=== PATIENT | male | born 1960 | race Caucasian/White ===

== ENCOUNTER 2021-11-28 01:31 | Observation (INO) | payer BC ==
[2021-11-28 02:34] LABS: Absolute Lymphocytes (CBC) 1.1 K/uL (0.7-4.9); Hematocrit 39.1 % (39.6-49.0); MPV 7.7 fL (7.6-11.3); RBC Red Blood Cell Count 4.79 M/uL (4.33-5.43)
--- NOTE | 2021-11-28 02:39 | ER ---
Nurse's Notes [facility] Name: Geraldo Torres Age: 61 yrs Sex: Male : 1960 Arrival Date: 11/28/2021 Time: 01:36 Bed 14 Private MD: Diagnosis: Paresthesia of skin;Dyspnea, unspecified;Transient cerebral ischemic attack, unspecified Presentation: 11/28 02:02 Chief complaint: Patient states: I have been increasingly tired for the past 2 weeks jb4 and SOB. I noticed that my SOB is worse with exertion. 2 days ago my arm went numb and got better. I went to bed tonight at 2300 and woke up around 0000 and my arm was still numb and it did not get any better so I came in tonight. Coronavirus screen: At this time, the client does not indicate any symptoms associated with coronavirus-19. Ebola Screen: No symptoms or risks identified at this time. Initial Sepsis Screen: Does the patient meet any 2 criteria? No. Patient's initial sepsis screen is negative. Does the patient have a suspected source of infection? No. Patient's initial sepsis screen is negative. Risk Assessment: Do you want to hurt yourself or someone else? Patient reports no desire to harm self or others. Onset of symptoms was November 28, 2021. Transition of care: patient was not received from another setting of care. 02:02 Method Of Arrival: Ambulatory jb4 02:02 Acuity: SUSIE 2 jb4 02:10 No acute neurological deficit is noted. Pre-hospital glucose is not applicable to this lp1 patient. Triage Assessment: 02:05 The onset of the patients symptoms was November 27, 2021 at 23:00. Neuro: Reports numbness jb4 in left arm. Stroke Activation: Symptom onset < 3 hours Physician: Stroke Attending; Name: ; Notified At: ; Arrived At: Physician: Chief Stroke Resident; Name: ; Notified At: ; Arrived At: Physician: Stroke Resident; Name: ; Notified At: ; Arrived At: Physician: ED Attending; Name: ; Notified At: ; Arrived At: Physician: ED Resident; Name: ; Notified At: ; Arrived At: Historical: - Allergies: 02:05 NKDA; jb4 - PMHx: 02:05 Sleep anea; hypertension; high Cholesterol; jb4 - PSHx: 02:05 Left hand; jb4 - Immunization history:: Adult Immunizations up to date. - Social history:: Smoking status: Patient denies any tobacco usage or history of. Patient uses alcohol, occasionally. - Family history:: not pertinent. - Hospitalizations: : No recent hospitalization is reported. Screenin:02 Abuse screen: Denies threats or abuse. Nutritional screening: No deficits noted. jb4 Tuberculosis screening: No symptoms or risk factors identified. 02:02 VAN Screening: Arm Drift: Patient shows no arm weakness. Patient is VAN negative. jb4 Visual Disturbance: No visual disturbance noted. Aphasia: No aphasia noted. Neglect: No neglect noted. Fall Risk None identified. Assessment: 02:02 VAN Scoring: Arm Drift: Patients demonstrates NO arm weakness. Patient is VAN Negative. jb4 Visual Disturbance: No visual disturbance noted. T-PA (Activase) Screening: Contraindications: Rapidly improving condition or minor deficit: Yes. 02:25 Patient has been NPO before screening. The patient is alert, and able to follow lp1 commands. The patient does not exhibit slurred or garbled speech. The patient is not exhibiting difficulty speaking. The patient does not exhibit difficulty understanding words. The patient is able to swallow own secretions with no drooling or need for suction. Patient tolerated one teaspoon of water. No drooling, immediate coughing, gurgling, or clearing of the throat was noted. The patient tolerated 90mL of water. No drooling, immediate coughing, gurgling, or clearing of the throat was noted. The patient passed the bedside swallow screening. Oral medications may be given as ordered. Contact Physician for further diet orders. Provider notified of bedside swallow screening results: Huber Russell MD. 02:30 General: Appears in no apparent distress. Behavior is calm, cooperative, appropriate lp1 for age. Pain: Denies pain. Neuro: Level of Consciousness is awake, alert, obeys commands, Oriented to person, place, time, situation, Slope Hoist Operator are equal bilaterally Moves all extremities. Full function Gait is steady, Speech is normal, Facial symmetry appears normal, Pupils are PERRLA, Intact. Cardiovascular: Patient's skin is warm and dry. Rhythm is sinus rhythm. Respiratory: Reports intermittent episodes of dyspnea with exertion Respiratory effort is even, unlabored. GI: No signs and/or symptoms were reported involving the gastrointestinal system. : No signs and/or symptoms were reported regarding the genitourinary system. EENT: No signs and/or symptoms were reported regarding the EENT system. Derm: Skin is pink, warm \T\ dry. Musculoskeletal: No deficits noted. 03:14 Reassessment: Hospitalist at bedside to discuss plan of care with patient and . lp1 04:30 Reassessment: Patient appears in no apparent distress at this time. Patient is alert, lp1 oriented x 3, equal unlabored respirations, skin warm/dry/pink. Neuro: Moves all extremities. Full function Speech is normal, Intact. Vital Signs: 02:02 BP 161 / 84; Pulse 74; Resp 18; Temp 98.9(TE); Pulse Ox 96% on R/A; Weight 95.25 kg jb4 (R); Height 5 ft. 8 in. (172.72 cm) (R); Pain 0/10; 02:28 BP 149 / 86; Pulse 74; Resp 17; Pulse Ox 97% on R/A; lp1 03:11 BP 137 / 76; Pulse 68; Resp 20; Pulse Ox 97% on R/A; lp1 04:30 BP 126 / 91; Pulse 64; Resp 20; Pulse Ox 98% on R/A; Pain 0/10; lp1 02:02 Body Mass Index 31.93 (95.25 kg, 172.72 cm) jb4 NIH Stroke Scale Scores: 02:01 NIHSS Score: 0 rn 02:02 NIHSS Score: 0 jb4 02:02 NIHSS Score: 0 jb4 ED Course: 01:36 Patient arrived in ED. bp1 01:37 Huber Russell MD is Attending Physician. rn 02:[address] via stretcher. lp1 02:04 Amanda Krueger, RN is Primary Nurse. lp1 02:05 Triage completed. jb4 02:05 Arm band placed on right wrist. jb4 02:05 Patient has correct armband on for positive identification. Placed in gown. Bed in low lp1 position. Call light in reach. compliance monitor on. Pulse ox on. NIBP on. 02:12 CT Stroke Brain w/o Contrast In Process Unspecified. EDMS 02:15 Inserted saline lock: 20 gauge in right antecubital area, using aseptic technique. lp1 Blood collected. 02:37 Rocio Armendariz MD is Hospitalizing Provider. rn 03:09 CT Head Angio In Process Unspecified. EDMS 03:09 CT Neck Angio In Process Unspecified. EDMS 03:11 No provider procedures requiring assistance completed. Patient admitted, IV remains in lp1 place. Administered Medications: 02:46 Drug: Aspirin 325 mg Route: PO; lp1 04:13 Follow up: Response: No adverse reaction lp1 04:30 Drug: foLIC Acid 1 mg Route: IVPB; Site: right antecubital; lp1 04:48 Follow up: IV Status: Completed infusion; IV Intake: 50ml lp1 04:35 Drug: Potassium Chloride 10 mEq Route: IV; Rate: calculated rate; Site: right lp1 antecubital; 04:56 Follow up: IV Status: Infusion continued upon admission lp1 04:35 Drug: Magnesium Sulfate 1 grams Route: IVPB; Infused Over: 1 hrs; Site: right lp1 antecubital; 04:56 Follow up: IV Status: Infusion continued upon admission lp1 Point of Care Testing: Blood Glucose: 02:02 Blood Glucose: 126 mg/dL; jb4 Ranges: Intake: 04:48 IV: 50ml; Total: 50ml. lp1 Outcome: 02:38 Decision to Hospitalize by Provider. rn 03:11 Condition: stable lp1 03:11 Instructed on the need for admit. 04:56 Admitted to ER Hold. Please see [facility] for further documentation. lp1 08:26 Patient left the ED. jl7 NIH Stroke Scale - NIH Stroke Score Date: 11/28/2021 Time: 02:01 Total Score = 0 1a. Level of Consciousness (LOC) - 0(Alert) 1b. Level of Consciousness (LOC) (Month \T\ Age) - 0(Both) 1c. LOC Commands (Open \T\ Closes Eyes/Operations Officer) - 0(Both) 2. Best Gaze (Lateral Gaze Paresis) - 0(Normal) 3. Visual Field Loss - 0(No visual loss) 4. Facial Palsy - 0(Normal) 5a. Left Arm: Motor (10-second hold) - 0(No drift) 5b. Right Arm: Motor (10-second hold) - 0(No drift) 6a. Left Leg: Motor (5-second hold - always test supine) - 0(No drift) 6b. Right Leg: Motor (5-second hold - always test supine) - 0(No drift) 7. Limb Ataxia (finger/nose \T\ heel/villagomez - test with eyes open) - 0(Absent) 8. Sensory Loss (pinprick arms/legs/face) - 0(Normal) 9. Best Language: Aphasia (description/naming/reading) - 0(No aphasia) 10. Dysarthria (speech clarity - read or repeat words) - 0(Normal) 11. Extinction and Inattention (visual/tactile/auditory/spatial/personal) - 0(No abnormality) Initials: rn NIH Stroke Scale - NIH Stroke Score Date: 11/28/2021 Time: 02:02 Total Score = 0 1a. Level of Consciousness (LOC) - 0(Alert) 1b. Level of Consciousness (LOC) (Month \T\ Age) - 0(Both) 1c. LOC Commands (Open \T\ Closes Eyes/Operations Officer) - 0(Both) 2. Best Gaze (Lateral Gaze Paresis) - 0(Normal) 3. Visual Field Loss - 0(No visual loss) 4. Facial Palsy - 0(Normal) 5a. Left Arm: Motor (10-second hold) - 0(No drift) 5b. Right Arm: Motor (10-second hold) - 0(No drift) 6a. Left Leg: Motor (5-second hold - always test supine) - 0(No drift) 6b. Right Leg: Motor (5-second hold - always test supine) - 0(No drift) 7. Limb Ataxia (finger/nose \T\ heel/villagomez - test with eyes open) - 0(Absent) 8. Sensory Loss (pinprick arms/legs/face) - 0(Normal) 9. Best Language: Aphasia (description/naming/reading) - 0(No aphasia) 10. Dysarthria (speech clarity - read or repeat words) - 0(Normal) 11. Extinction and Inattention (visual/tactile/auditory/spatial/personal) - 0(No abnormality) Initials: jb4 NIH Stroke Scale - NIH Stroke Score Date: 11/28/2021 Time: 02:02 Total Score = 0 1a. Level of Consciousness (LOC) - 0(Alert) 1b. Level of Consciousness (LOC) (Month \T\ Age) - 0(Both) 1c. LOC Commands (Open \T\ Closes Eyes/Operations Officer) - 0(Both) 2. Best Gaze (Lateral Gaze Paresis) - 0(Normal) 3. Visual Field Loss - 0(No visual loss) 4. Facial Palsy - 0(Normal) 5a. Left Arm: Motor (10-second hold) - 0(No drift) 5b. Right Arm: Motor (10-second hold) - 0(No drift) 6a. Left Leg: Motor (5-second hold - always test supine) - 0(No drift) 6b. Right Leg: Motor (5-second hold - always test supine) - 0(No drift) 7. Limb Ataxia (finger/nose \T\ heel/villagomez - test with eyes open) - 0(Absent) 8. Sensory Loss (pinprick arms/legs/face) - 0(Normal) 9. Best Language: Aphasia (description/naming/reading) - 0(No aphasia) 10. Dysarthria (speech clarity - read or repeat words) - 0(Normal) 11. Extinction and Inattention (visual/tactile/auditory/spatial/personal) - 0(No abnormality) Initials: jb4 Signatures: Dispatcher [employer] EDMS Huber Russell MD MD rn Amanda Krueger RN RN lp1 Beck Grimes RN RN jb4 Abhinav Webber RN RN jl7 Yuliya Valente Corrections: (The following items were deleted from the chart) 03:14 03:14 Reassessment: Hospitalist at bedside to discuss plan of care with patient lp1 and lp1
--- NOTE | 2021-11-28 02:39 | EDPHYS ---
Physician Documentation [facility] Name: Geraldo Torres Age: 61 yrs Sex: Male : 1960 Arrival Date: 11/28/2021 Time: 01:36 Bed 14 Private MD: ED Physician Huber Russell HPI: 11/28 02:02 This 61 yrs old Male presents to ER via Unassigned with complaints of Numbness Of Arm. rn 02:02 The patient or guardian complains of. rn 02:02 The patient presents to the emergency department with paresthesias of the left upper rn extremity, that is mild. Onset: The symptoms/episode began/occurred last night. Context: occurred at home, occurred while the patient was asleep, at rest. Associated signs and symptoms: Pertinent positives: paresthesias, Pertinent negatives: altered mental status, chills, dizziness, fever, seizure, syncope, near-syncope, blurred vision, double vision, visual field changes, loss of vision, weakness. Severity of symptoms: At their worst the symptoms were moderate in the emergency department the symptoms have improved. Current symptoms: paresthesias left arm. The patient has experienced a previous episode. The patient has not recently seen a physician. Pt reports went to bed last night around 11PM, felt fine, woke up around midnight with left arm feeling numb or "heavy". Denies any other focal neuro complaint. Reports + mild left neck pain. No chest pain. No sob. No injury. Reports has "bad neck". We woke up with left arm numbness similar to tonight 2 days ago and went away after a few hours. Reports symptoms already improving, and now numbness isolated to mainly left hand near base of thumb. No abd pain. NO headache. No vision changes. . Historical: - Allergies: 02:05 NKDA; jb4 - PMHx: 02:05 Sleep anea; hypertension; high Cholesterol; jb4 - PSHx: 02:05 Left hand; jb4 - Immunization history:: Adult Immunizations up to date. - Social history:: Smoking status: Patient denies any tobacco usage or history of. Patient uses alcohol, occasionally. - Family history:: not pertinent. - Hospitalizations: : No recent hospitalization is reported. ROS: 02:02 Constitutional: Negative for fever, chills, and weight loss, Eyes: Negative for injury, rn pain, redness, and discharge, ENT: Negative for injury, pain, and discharge, Neck: Negative for injury,and swelling, Cardiovascular: Negative for chest pain, palpitations, and edema, Respiratory: Negative for shortness of breath, cough, wheezing, and pleuritic chest pain, Abdomen/GI: Negative for abdominal pain, nausea, vomiting, diarrhea, and constipation, Back: Negative for injury and pain, : Negative for injury, bleeding, discharge, and swelling, MS/Extremity: Negative for injury and deformity, Skin: Negative for injury, rash, and discoloration, Neuro: Negative for headache, weakness, and seizure. Exam: 02:02 Constitutional: This is a well developed, well nourished patient who is awake, alert, rn and in no acute distress. Head/Face: Normocephalic, atraumatic. Eyes: Pupils equal round and reactive to light, extra-ocular motions intact. Periorbital areas with no swelling, redness, or edema. Neck: Trachea midline, no thyromegaly or masses palpated, and no cervical lymphadenopathy. Supple, full range of motion without nuchal rigidity, or vertebral point tenderness. No Meningismus. Cardiovascular: Regular rate and rhythm. No pulse deficits. Respiratory: No increased work of breathing, no retractions or nasal flaring. Abdomen/GI: Soft, non-tender Skin: Warm, dry with normal turgor. Normal color with no rashes, no lesions, and no evidence of cellulitis. MS/ Extremity: Pulses equal, no cyanosis. Neurovascular intact. Full, normal range of motion. Equal circumference. Neuro: Awake and alert, GCS 15, oriented to person, place, time, and situation. Cranial nerves II-XII grossly intact. Motor strength 5/5 in all extremities. Sensory grossly intact. No deficit appreciated LUE with soft touch or painful stimuli/sharp stimuli. Cerebellar exam normal. 02:20 ECG was reviewed by the Attending Physician. rn Vital Signs: 02:02 BP 161 / 84; Pulse 74; Resp 18; Temp 98.9(TE); Pulse Ox 96% on R/A; Weight 95.25 kg jb4 (R); Height 5 ft. 8 in. (172.72 cm) (R); Pain 0/10; 02:28 BP 149 / 86; Pulse 74; Resp 17; Pulse Ox 97% on R/A; lp1 03:11 BP 137 / 76; Pulse 68; Resp 20; Pulse Ox 97% on R/A; lp1 04:30 BP 126 / 91; Pulse 64; Resp 20; Pulse Ox 98% on R/A; Pain 0/10; lp1 02:02 Body Mass Index 31.93 (95.25 kg, 172.72 cm) jb4 NIH Stroke Scale Scores: 02:01 NIHSS Score: 0 rn 02:02 NIHSS Score: 0 jb4 02:02 NIHSS Score: 0 jb4 MDM: 01:37 Patient medically screened. rn 02:06 ED course: Pt presents with 2nd episode of LUE numbness/heaviness in 2 nights. 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 No other focal neuro complaints. + hx of "bad neck". No chest pain. Does report exertional dyspnea lately and was going to make appt with cardiology for w/u. NIH score on my exam is 0 and states his subjective symptoms are improving. Spoke with him at length regarding possibility of very mild stroke and the treatment of stroke, TNKase, and risks. Patient agrees that with other etiologies possible, CT not able to confirm stroke, NIH score of 0, and rapidly improving symptoms, that he would not want TNKase/TPA. He understands risks and benefits of this treatment and declines treatment at this time. Told him to let me know of any changes. . 02:26 ED course: Radiology reports CT head without acute findings. rn 02:32 ED course: Pt reevaluated again after neg ct head, pt completely back to normal, is rn joking in room, using both arms on phone, states no longer feels anything abnormal in left arm. . 02:37 Data reviewed: vital signs, nurses notes, lab test result(s), EKG, radiologic studies, rn CT scan, and as a result, I will admit patient. Counseling: I had a detailed discussion with the patient and/or guardian regarding: the historical points, exam findings, and any diagnostic results supporting the discharge/admit diagnosis, lab results, radiology results, the need for further work-up and treatment in the hospital. Response to treatment: the patient's symptoms have resolved after treatment, the patient's condition has returned to base line, the patient is now symptom free, and as a result, I will discharge patient. Admission orders: after a detailed discussion of the patient's condition and case, the admit orders are written by me. 11/28 02:01 Order name: CBC with Diff; Complete Time: 03:06 rn 11/28 02:01 Order name: Protime (+inr); Complete Time: 03:06 rn 11/28 02:01 Order name: Ptt, Activated; Complete Time: 03:06 rn 11/28 02:06 Order name: Troponin High Sensitivity; Complete Time: 03:06 rn 11/28 02:06 Order name: BNP; Complete Time: 03:06 rn 11/28 02:15 Order name: Glucose, Ancillary Testing; Complete Time: 02:28 EDRI 11/28 02:30 Order name: Basic Metabolic Panel; Complete Time: 03:06 EDRI 11/28 03:09 Order name: COVID-19 SARS RT PCR (Document "Date of Onset" if Symptomatic) lp1 11/28 04:03 Order name: CREATININE WHOLE BLOOD; Complete Time: 04:09 EDRI 11/28 05:59 Order name: Lipid Profile EDRI 11/28 05:59 Order name: T4 Free EDRI 11/28 05:59 Order name: Thyroid Stimulating Hormone EDRI 11/28 07:44 Order name: Urinalysis EDRI 11/28 02:01 Order name: CT Stroke Brain w/o Contrast rn 11/28 02:01 Order name: Stroke CXR 1 View rn 11/28 02:01 Order name: EKG; Complete Time: 02:02 rn 11/28 02:01 Order name: Accucheck; Complete Time: 02:27 rn 11/28 02:01 Order name: Cardiac monitoring; Complete Time: 02:27 rn 11/28 02:01 Order name: EKG - Nurse/Tech; Complete Time: 02:27 rn 11/28 02:01 Order name: IV Saline Lock; Complete Time: 02:27 rn 11/28 02:01 Order name: Labs collected and sent; Complete Time: 02:27 rn 11/28 02:01 Order name: NPO; Complete Time: 02:27 rn 11/28 02:01 Order name: O2 Per Protocol; Complete Time: 02:27 rn 11/28 02:01 Order name: CT Head Angio rn 11/28 02:01 Order name: CT Neck Angio rn 11/28 02:01 Order name: O2 Sat Monitoring; Complete Time: 02:27 rn 11/28 02:01 Order name: Stroke Swallow Screen; Complete Time: :27 rn EC:20 Rate is 68 beats/min. Rhythm is regular. QRS [place] is Normal. DE interval is normal. QRS rn interval is normal. QT interval is normal. No Q waves. T waves are Normal. No ST changes noted. Clinical impression: Normal ECG. Interpreted by me. Reviewed by me. Administered Medications: 02:46 Drug: Aspirin 325 mg Route: PO; lp1 04:13 Follow up: Response: No adverse reaction lp1 04:30 Drug: foLIC Acid 1 mg Route: IVPB; Site: right antecubital; lp1 04:48 Follow up: IV Status: Completed infusion; IV Intake: 50ml lp1 04:35 Drug: Potassium Chloride 10 mEq Route: IV; Rate: calculated rate; Site: right lp1 antecubital; 04:56 Follow up: IV Status: Infusion continued upon admission lp1 04:35 Drug: Magnesium Sulfate 1 grams Route: IVPB; Infused Over: 1 hrs; Site: right lp1 antecubital; 04:56 Follow up: IV Status: Infusion continued upon admission lp1 Point of Care Testing: Blood Glucose: 02:02 Blood Glucose: 126 mg/dL; jb4 Ranges: Critical Glucose Levels:Adult <50 mg/dl or >400 mg/dl <40 mg/dl or >180 mg/dl Disposition Summary: 11/28/21 02:38 Hospitalization Ordered Hospitalization Status: Inpatient Admission rn Provider: Rocio Armendariz rn Condition: Stable rn Problem: new rn Symptoms: have improved rn Bed/Room Type: Standard rn Location: [facility] ER HOLD(11/28/21 04:31) eb1 Room Assignment: ERHOLD-(11/28/21 04:31) eb1 Diagnosis - Paresthesia of skin rn - Dyspnea, unspecified rn - Transient cerebral ischemic attack, unspecified rn Forms: - Medication Reconciliation Form rn - SBAR form rn NIH Stroke Scale - NIH Stroke Score Date: 11/28/2021 Time: 02:01 Total Score = 0 1a. Level of Consciousness (LOC) - 0(Alert) 1b. Level of Consciousness (LOC) (Month \\T\\ Age) - 0(Both) 1c. LOC Commands (Open \\T\\ Closes Eyes/Shear Operator) - 0(Both) 2. Best Gaze (Lateral Gaze Paresis) - 0(Normal) 3. Visual Field Loss - 0(No visual loss) 4. Facial Palsy - 0(Normal) 5a. Left Arm: Motor (10-second hold) - 0(No drift) 5b. Right Arm: Motor (10-second hold) - 0(No drift) 6a. Left Leg: Motor (5-second hold - always test supine) - 0(No drift) 6b. Right Leg: Motor (5-second hold - always test supine) - 0(No drift) 7. Limb Ataxia (finger/nose \\T\\ heel/villagomez - test with eyes open) - 0(Absent) 8. Sensory Loss (pinprick arms/legs/face) - 0(Normal) 9. Best Language: Aphasia (description/naming/reading) - 0(No aphasia) 10. Dysarthria (speech clarity - read or repeat words) - 0(Normal) 11. Extinction and Inattention (visual/tactile/auditory/spatial/personal) - 0(No abnormality) Initials: edgar NIH Stroke Scale - NIH Stroke Score Date: 11/28/2021 Time: 02:02 Total Score = 0 1a. Level of Consciousness (LOC) - 0(Alert) 1b. Level of Consciousness (LOC) (Month \\T\\ Age) - 0(Both) 1c. LOC Commands (Open \\T\\ Closes Eyes/Shear Operator) - 0(Both) 2. Best Gaze (Lateral Gaze Paresis) - 0(Normal) 3. Visual Field Loss - 0(No visual loss) 4. Facial Palsy - 0(Normal) 5a. Left Arm: Motor (10-second hold) - 0(No drift) 5b. Right Arm: Motor (10-second hold) - 0(No drift) 6a. Left Leg: Motor (5-second hold - always test supine) - 0(No drift) 6b. Right Leg: Motor (5-second hold - always test supine) - 0(No drift) 7. Limb Ataxia (finger/nose \\T\\ heel/villagomez - test with eyes open) - 0(Absent) 8. Sensory Loss (pinprick arms/legs/face) - 0(Normal) 9. Best Language: Aphasia (description/naming/reading) - 0(No aphasia) 10. Dysarthria (speech clarity - read or repeat words) - 0(Normal) 11. Extinction and Inattention (visual/tactile/auditory/spatial/personal) - 0(No abnormality) Initials: victoria NIH Stroke Scale - NIH Stroke Score Date: 11/28/2021 Time: 02:02 Total Score = 0 1a. Level of Consciousness (LOC) - 0(Alert) 1b. Level of Consciousness (LOC) (Month \\T\\ Age) - 0(Both) 1c. LOC Commands (Open \\T\\ Closes Eyes/Shear Operator) - 0(Both) 2. Best Gaze (Lateral Gaze Paresis) - 0(Normal) 3. Visual Field Loss - 0(No visual loss) 4. Facial Palsy - 0(Normal) 5a. Left Arm: Motor (10-second hold) - 0(No drift) 5b. Right Arm: Motor (10-second hold) - 0(No drift) 6a. Left Leg: Motor (5-second hold - always test supine) - 0(No drift) 6b. Right Leg: Motor (5-second hold - always test supine) - 0(No drift) 7. Limb Ataxia (finger/nose \\T\\ heel/villagomez - test with eyes open) - 0(Absent) 8. Sensory Loss (pinprick arms/legs/face) - 0(Normal) 9. Best Language: Aphasia (description/naming/reading) - 0(No aphasia) 10. Dysarthria (speech clarity - read or repeat words) - 0(Normal) 11. Extinction and Inattention (visual/tactile/auditory/spatial/personal) - 0(No abnormality) Initials: jb4 Signatures: Dispatcher [employer] EDMS Huber Russell MD MD rn Pena, Laura RN RN lp1 Beck Grimes RN RN jb4 Kamryn Hawkins RN RN eb1 Corrections: (The following items were deleted from the chart) 02:07 02:02 Constitutional: This is a well developed, well nourished patient who is rn awake, alert, and in no acute distress. Head/Face: Normocephalic, atraumatic. Eyes: Pupils equal round and reactive to light, extra-ocular motions intact. Periorbital areas with no swelling, redness, or edema. Neck: Trachea midline, no thyromegaly or masses palpated, and no cervical lymphadenopathy. Supple, full range of motion without nuchal rigidity, or vertebral point tenderness. No Meningismus. Cardiovascular: Regular rate and rhythm. No pulse deficits. Respiratory: Lungs have equal breath sounds bilaterally, clear to auscultation and percussion. No rales, rhonchi or wheezes noted. No increased work of breathing, no retractions or nasal flaring. Abdomen/GI: Soft, non-tender, with normal bowel sounds. No distension or tympany. No guarding or rebound. No evidence of tenderness throughout. rn 02:30 02:02 BASIC METABOLIC PANEL+C.LAB.BRZ ordered. EDMS EDMS 04:31 02:38 Telemetry/MedSurg (Inpatient) rn eb1 04:31 02:38 edgar eb1
[2021-11-28 02:42] LABS: Protime INR 0.96
[2021-11-28] MEDS ORDERED: ASPIRIN EC 325 MG TABLET PO ONE (02:49)
[2021-11-28 02:51] LABS: Potassium 3.2 mmol/L (3.5-5.1); Troponin High Sensitivity 5.5 pg/mL (<58.9)
--- NOTE | 2021-11-28 03:41 | P.HP ---
Certification for Inpatient Patient admitted to: Observation With expected LOS: <2 Midnights Patient will require the following post-hospital care: None Practitioner: I am a practitioner with admitting privileges, knowledge of patient current condition, hospital course, and medical plan of care. Services: Services provided to patient in accordance with Admission requirements found in Title 42 Section 412.3 of the Code of Federal Regulations <Isabel Nelson - Last Filed: 11/28/21 04:02> Patient History Date of Service: 11/28/21 Primary Care Provider: Dr. Hernandez Reason for admission: ACS R/O History of Present Illness: Patient is a 61-year-old male hypertension, hyperlipidemia, and sleep apnea who presented to the ED with a 2-day history of intermittent shortness of breath on exertion. He also reports that the past few nights he has woken up with his left arm numb. Previous night, he thought he just slept on it but tonight when he woke up he knew that he was not sleeping on the side. He came to the ED because he has a strong family history of [place]. Code stroke was initially called. CT head negative. CTA pending. Troponin within normal limits and EKG negative. He was given 324 chewable aspirin. 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 Patient denies any chest pain at this time. We will admit patient for further observation. Home medications list reviewed: Yes - Past Medical/Surgical History Diabetic: No -: HTN -: HLD -: Hand surgery - Family History Father -: Heart disease Sister -: Heart disease - Social History Smoking Status: Never smoker Alcohol use: Yes CD- Drugs: No Caffeine use: Yes Place of Residence: Home <Isabel Nelson - Last Filed: 11/28/21 04:02> Date of Service: 11/28/21 <Rocio Armendariz - Last Filed: 11/28/21 07:27> Review of Systems Respiratory: SOB with Excertion Cardiovascular: Other (numbness L arm ) <Isabel Nelson - Last Filed: 11/28/21 04:02> Physical Examination - Physical Exam General: Alert, In no apparent distress, Oriented x3 HEENT: Atraumatic, PERRLA, Mucous membr. moist/pink, EOMI, Sclerae nonicteric Neck: Supple, 2+ carotid pulse no bruit, No LAD, Without JVD or thyroid abnormality Respiratory: Clear to auscultation bilaterally, Normal air movement Cardiovascular: No edema, Normal pulses, Regular rate/rhythm, Normal S1 S2, No gallops, No rubs, No murmurs Gastrointestinal: Normal bowel sounds, No tenderness Musculoskeletal: No tenderness Integumentary: No rashes Neurological: Normal speech, Normal strength at 5/5 x4 extr, Normal tone, Normal affect - Studies Laboratory Data (last 24 hrs) 11/28/21 02:15: Sodium 141, Potassium 3.2 L, BUN 22 H, Creatinine 0.98, Glucose 123 H 11/28/21 02:15: PT 10.5, INR 0.96, APTT 34.3 11/28/21 02:15: WBC 5.9, Hgb 12.7 L, Hct 39.1 L, Plt Count 239 11/28/21 02:01: Sodium Cancelled, Potassium Cancelled, BUN Cancelled, Creatinine Cancelled, Glucose Cancelled <Isabel Nelson - Last Filed: 11/28/21 04:02> - Studies Laboratory Data (last 24 hrs) 11/28/21 02:15: Sodium 141, Potassium 3.2 L, BUN 22 H, Creatinine 0.98, Glucose 123 H 11/28/21 02:15: PT 10.5, INR 0.96, APTT 34.3 11/28/21 02:15: WBC 5.9, Hgb 12.7 L, Hct 39.1 L, Plt Count 239 11/28/21 02:01: Sodium Cancelled, Potassium Cancelled, BUN Cancelled, Creatinine Cancelled, Glucose Cancelled <Rocio Armendariz - Last Filed: 11/28/21 07:27> Assessment and Plan - Problems (Diagnosis) (1) Left arm numbness Current Visit: Yes Status: Acute (2) Shortness of breath Current Visit: Yes Status: Acute (3) Hypertension Current Visit: Yes Status: Chronic Qualifiers: Hypertension type: primary hypertension Qualified Code(s): I10 - Essential (primary) hypertension (4) Hyperlipidemia Current Visit: Yes Status: Chronic Qualifiers: Hyperlipidemia type: mixed hyperlipidemia Qualified Code(s): E78.2 - Mixed hyperlipidemia (5) Family history of [place] (myocardial infarction) Current Visit: Yes Status: Chronic - Plan -Admitted for ACS rule out. Given 324 aspirin in the ED. Takes atorvastatin and baby aspirin on a daily basis. Lipid panel ordered for the morning -Troponin within normal limits. EKG negative. Echo ordered for the morning and cardiology consult. Patient denies chest pain. -monitor on telemetry -Lovenox for DVT prophylaxis Discharge Plan: Home Plan to discharge in: 24 Hours - Advance Directives Does patient have a Living Will: No Does patient have a Durable POA for Healthcare: No - Code Status/Comfort Care Code Status Assessed: Yes (Full) Critical Care: No Time Spent Managing Pts Care (In Minutes): 50 <Isabel Nelson - Last Filed: 11/28/21 04:02> Date of Service: 11/28/21 Subjective: HPI as mentioned above Physical Examination: Vitals: Afebrile vital signs are stable Physical exam: Cardiovascular: Within normal limits. Lungs: Within normal limits Abdomen: Within normal limits Neuro: Awake, alert, oriented to person place and time Assessment: 1. Chest pain rule out acute coronary syndrome Plan: 1. Continue with current plan of care as mentioned above <Rocio Armendariz - Last Filed: 11/28/21 07:27>
[2021-11-28] MEDS ORDERED: NA CHLORIDE 0.9% 0 ML ONE (04:29)
[2021-11-28] MEDS ORDERED: KCL 20 MEQ/100 mL IVPB 100 ML IV ONE (04:30)
[2021-11-28] MEDS ORDERED: MAGNESIUM SULFATE 1 gm IVPB 1 GM/100 ML BAG IV ONE (04:30)
[2021-11-28] MEDS ORDERED: FOLIC ACID 5 MG/ML VIAL ONE (04:31)
[2021-11-28] MEDS ORDERED: NA CHLORIDE 0.9% 50 ML ONE (04:31)
[2021-11-28] MEDS ORDERED: ACETAMINOPHEN 500 MG TAB PO PRN (05:11)
[2021-11-28] MEDS ORDERED: ONDANSETRON 4 MG/2 ML VIAL IV PRN (05:11)
[2021-11-28 05:16] VITALS: BMI 32.2
[2021-11-28 05:59] LABS: Thyroid Stimulating Hormone 2.93 uIU/mL (0.360-3.740)
[2021-11-28 07:44] LABS: Urine Appearance CLEAR (Clear); Urine Bilirubin NEGATIVE (Negative); Urine Blood NEGATIVE (Negative); Urine Color YELLOW (Yellow); Urine Glucose NEGATIVE (Negative); Urine Microscopic Reflex NO UMIC; Urine Protein NEGATIVE (Negative); Urine Specific Gravity 1.015 (1.005-1.030); Urine Urobilinogen 0.2 mg/dL (0.2-1.0)
--- NOTE | 2021-11-28 07:54 | EKG ---
Test Date: 2021-11-28 Test Time: 02:12:41 Tablet Coater: MIGUEL MEASUREMENT RESULTS: Intervals: Rate: 68 FL: 190 QRSD: 80 QT: 410 QTc: 435 [place]: P: 46 FL: 190 QRS: 3 T: 28 INTERPRETIVE STATEMENTS: Normal sinus rhythm Normal ECG Compared to ECG 07/12/2006 14:08:12 Sinus bradycardia no longer present Electronically Signed On 11-28-21 07:54:21 CDT by Nishant Smith
[2021-11-28 08:31] VITALS: TEMP 98.9
[2021-11-28 08:36] VITALS: BP 126/91; O2SAT 98
[2021-11-28] MEDS ORDERED: ENOXAPARIN 40 MG/0.4 ML SQ SCH (09:00)
--- NOTE | 2021-11-28 10:54 | RAD REPORT ---
EXAM DESCRIPTION: 1. CTA of the head with contrast. 2. CTA of the neck with contrast. CLINICAL HISTORY: 61 years, Male, numbness left arm COMPARISON: None. TECHNIQUE: Axial CTA images of the head and neck obtained following the uncomplicated intravenous ad ministration of iodinated contrast. 3-D/MIP reformatted images available. This exam was performed acc ording to our departmental dose-optimization program, which includes automated exposure control, adju stment of the mA and/or kV according to patient size and/or use of iterative reconstruction technique . FINDINGS: CTA head: In the anterior circulation, the intracranial internal carotid arteries have normal course and calibe r. The internal carotid arteries bifurcate into widely patent A1 and M1 segments of the anterior and middle cerebral arteries respectively. No evidence of flow-limiting stenosis, aneurysm, occlusion, or dissection in the anterior circulation. The anterior communicating artery is patent. In the posterior circulation, the intracranial vertebral arteries combine to form a widely patent bas ilar artery. The basilar artery bifurcates into widely patent P1 segments of the posterior cerebral a rtery. No evidence of stenosis, aneurysm, occlusion, or dissection in the posterior circulation. No definite acute intracranial abnormality identified. No acute abnormality of the osseous calvarium. Paranasal sinuses and mastoid air cells are well aerated. CTA NECK: The aortic arch has normal anatomic configuration. The origin of the great vessels are widely patent. The right common carotid artery is widely patent and bifurcates into widely patent internal and exter nal carotid arteries. Minimal nonflow limiting atherosclerotic plaque at the carotid bulb. 0% stenosi s by NASCET criteria. No evidence of occlusion or dissection. The left common carotid artery is widely patent and bifurcates into widely patent internal and wire winding machine operator al carotid arteries. Minimal nonflow limiting atherosclerotic plaque at the carotid bulb. 0% stenos is by NASCET criteria. No evidence of occlusion or dissection. The cervical vertebral arteries are widely patent throughout their course. No evidence of occlusion, stenosis, or dissection. No definite acute abnormalities in the neck soft tissues. No apical pneumothorax. No acute osseous ab normalities. Multilevel endplate spondylosis and facet arthropathy. Disc height narrowing. IMPRESSION: 1. No evidence of stenosis, occlusion, or aneurysm in the intracranial arterial circul ation. 2. No evidence of stenosis/occlusion of the cervical carotid or vertebral arteries. Electronically signed by: Urban Montanez 11/28/2021 3:52 AM CDT Due to temporary technical issues with the PACS/Fluency reporting system, reports are being signed by the in house radiologist without review as a courtesy to ensure prompt reporting. The interpreting r adiologist is fully responsible for the content of the report.
--- NOTE | 2021-11-28 10:56 | RAD REPORT ---
EXAM DESCRIPTION: ADDENDUM #1 THIS REPORT CONTAINS FINDINGS THAT MAY BE CRITICAL TO PATIENT CARE: The findings were verbally discu ssed via telephone conference with Dr. Russell by Dr. Alvarez at 0228 hours central time on November 28, 2021. The results were acknowledged and understood. Electronically signed by: Antonio Alvarez MD 11/28/2021 2:28 AM CDT End of Addendum EXAM DESCRIPTION: Ct Stroke Brain Wo Cont CLINICAL HISTORY: Left arm numbness COMPARISON: None Available. TECHNIQUE: Multiple helical axial tomographic images were obtained of the head without intravenous c ontrast. This exam was performed according to our departmental dose-optimization program, which inclu brian automated exposure control, adjustment of the mA and/or kV according to patient size and/or use o f iterative reconstruction technique. FINDINGS: There is no acute intracranial hemorrhage. No mass. No midline shift. No ventriculomegaly. Courtney-white matter differentiation is maintained. Paranasal sinuses are clear. Mastoid air cells and middle ear spaces are clear. Orbits and orbital co ntents are unremarkable. Osseous structures are unremarkable. Surrounding soft tissues are unremarkable. IMPRESSION: No acute intracranial process. Electronically signed by: Antonio Alvarez MD 11/28/2021 2:24 AM CDT Due to temporary technical issues with the PACS/Fluency reporting system, reports are being signed by the in house radiologist without review as a courtesy to ensure prompt reporting. The interpreting r adiologist is fully responsible for the content of the report.
--- NOTE | 2021-11-28 13:15 | CON ---
Date of Consultation: 11/28/2021 Reason For Consultation: Atypical chest pain. History Of Present Illness: Mr. Torres is a 61-year-old white male with strong family history of h eart disease, hypertension, dyslipidemia, and asthma. He came in complaining of arm numbness that la sted about 2 to 3 hours without any chest pain. He denies nausea, vomiting, diaphoresis, PND, orthop isaias, pedal edema, palpitations, or syncope. He does use a CPAP at home. So far workup including MRA and CT of the head and MRI of the brain negative. His potassium was 3.2, glucose was 126. EKG is u nremarkable. Troponin is unremarkable. BNP is unremarkable. The patient's symptoms have resolved. He did not have any palpitation. Past Medical History: As stated above. Allergies: NONE. Review of Systems: Negative. Social History: Negative. Family History: Positive for coronary artery disease. Medications: At home include hydrochlorothiazide, aspirin, Lipitor, Bystolic, and Singulair. Physical Examination: Vital Signs: Stable, afebrile. HEENT: Negative. Neck: Supple with no bruit. Chest: Clear. Cardiac: Revealed a regular rhythm and rate. No murmurs, gallops, or rubs. Abdomen: Benign. Extremities: Revealed no clubbing, cyanosis, or edema. Diagnostic Data: As stated earlier. Impression And Plan: 1.Left arm numbness. I think this is most likely secondary to cervical spondylosis. His potassium is 3.2, needs to be corrected. 2.Hypertension, well controlled. 3.Dyslipidemia. 4.Asthma. 5.Strong family history of heart disease. 6.Sleep apnea, on CPAP. I think Mr. Torres can go home. I am comfortable with him doing so. Bec ause of his family history, I will make arrangements for him to have an echocardiogram and an MPI and see me in the near future. The case was discussed with Dr. Armendariz. [id number] Voice ID: [id number] Report ID: [id number]
== END 2021-11-28 08:27 | disposition home or self-care (01) ==
LOC: ER 01:31 → ERHOLD 04:30
PROVIDERS: ADMIT Hospitalist; ATTEND Hospitalist
DX: R20.0 Anesthesia of skin (principal); R07.9 Chest pain, unspecified; I10 Essential (primary) hypertension; R06.02 Shortness of breath; E78.5 Hyperlipidemia, unspecified; J45.909 Unspecified asthma, uncomplicated; G47.30 Sleep apnea, unspecified; Z99.81 Dependence on supplemental oxygen; Z79.82 Long term (current) use of aspirin; Z79.899 Other long term (current) drug therapy; Z20.822 Contact with and (suspected) exposure to COVID-19; Z82.49 Family history of ischemic heart disease and other diseases of the circulatory system
CPT/HCPCS: 96365; 96367; 93005; 85025; 80048; 36415; 85610; 80061; 82565; 82947; 85730; 84443; 81003; 84484; 84439; 83880; 70496; 70498; 70450; 99285; U0003; Q9967; J3480; J3475; G0378 ×2; J7050